=== PATIENT | female | born 1950 | race Caucasian/White ===

== ENCOUNTER → 2017-01-14 | Outpatient (CLI) | payer BC ==
[2017-01-14 10:36] LABS: HEMATOCRIT 41.3 % (37-47); MEAN CELL VOLUME 92.4 fL (80-100); MEAN CORPUSCULAR HEMOGLOBIN 30.6 pg (25-34); MEAN CORPUSCULAR HGB CONC 33.2 g/dl (32-36); MEAN PLATELET VOLUME 10.5 fL (7.4-10.4); PLATELET COUNT 250 K/uL (130-400); RED BLOOD COUNT 4.47 M/uL (4.2-5.4); WHITE BLOOD COUNT 8.13 K/uL (4.8-10.8)
[2017-01-14 10:47] LABS: ALKALINE PHOSPHATASE 95 U/L (45-117); ALT/SGPT 13 U/L (12-78); BLOOD UREA NITROGEN 17 mg/dl (7-18); BUN/CREATININE RATIO 20.9 (10-20); CALCIUM 8.5 mg/dl (8.5-10.1); CARBON DIOXIDE 27 mmol/L (21-32); CHLORIDE 106 mmol/L (98-107); CHOLESTEROL 196 mg/dl (0-200); CHOLESTEROL/HDL RATIO 3.6; CREATININE 0.82 mg/dl (0.60-1.20); GLUCOSE 99 mg/dl (70-99); HDL CHOLESTEROL 55 mg/dl; LDL CHOLESTEROL CALCULATED 129 mg/dl; POTASSIUM 4.3 mmol/L (3.5-5.1); SODIUM 139 mmol/L (136-145); TRIGLYCERIDES 61 mg/dl (0-150); VERY LOW DENSITY LIPOPROT CALC 12 mg/dl
[2017-01-14 10:54] LABS: ALB/GLOB RATIO 0.9 (0.9-2); AST/SGOT 19 U/L (15-37); FERRITIN 16.2 ng/ml (8.0-388.0); THYROID STIMULATING HORMONE 0.624 uIu/ml (0.300-4.500)
[2017-01-14 11:00] LABS: BASO ABS # 0.15 K/uL (0-0.2); BASOPHIL % 1.8 %; COMPLETE YES; EOSINOPHIL % 6.3 %; LYMPH ABS # 2.25 K/uL (1.2-3.4); LYMPHOCYTE % 27.7 %; MYELOCYTE % 0.9 %; NEUTROPHILS % 55.3 %
[2017-01-14 11:41] LABS: ESTIMATED AVERAGE GLUCOSE 103 mg/dl; HA1C FLAG Normal (Normal)
== END | disposition home or self-care (01) ==
LOC: C.LABBC 07:50
PROVIDERS: ATTEND Nurse Practitioner Family
DX: E78.5 Hyperlipidemia, unspecified (principal); R73.03 Prediabetes; E03.9 Hypothyroidism, unspecified; R53.83 Other fatigue; L65.9 Nonscarring hair loss, unspecified; Z13.1 Encounter for screening for diabetes mellitus

== ENCOUNTER → 2017-06-19 | Outpatient (CLI) | payer BC ==
--- NOTE | 2017-06-19 17:17 | MAMMOGRAPHY REPORT ---
BILATERAL DIGITAL SCREENING MAMMOGRAM WITH CAD: 06/19/2017 CLINICAL HISTORY: Routine screening. Patient has no complaints. TECHNIQUE: Current study was also evaluated with a Computer Aided Detection (CAD) system. Bilateral CC and MLO views were obtained. COMPARISON: Comparison is made to exams dated: 06/15/2016 mammogram, 05/26/2015 mammogram, 05/12/2014 pipo mogram, 05/11/2013 mammogram, 04/21/2012 mammogram, and 04/19/2011 mammogram - [facility] er. BREAST COMPOSITION: There are scattered areas of fibroglandular density in both breasts. FINDINGS: There is a 5 mm mass within the right central/12:00 breast middle depth, for which spot com pression tomosynthesis views and possible breast ultrasound are recommended for further evaluation. This may represent a cyst. The remainder of both breasts are stable compared to prior exams, without suspicious masses, calcific ations, or areas of architectural distortion noted. Small mass in the left central breast is stable dating back to at least the 2010 exam. IMPRESSION: ACR BI-RADS CATEGORY 0: INCOMPLETE EVALUATION: NEED ADDITIONAL IMAGING EVALUATION Right breast mass, for which additional imaging evaluation is recommended. The patient will be called to schedule an appointment. Approximately 10% of breast cancers are not detected with mammography. A negative mammographic report should not delay biopsy if a clinically suggestive mass is present. Ce Farias M.D. /:06/19/2017 16:35:03 Telecommunications Facility Examiner: An Meyer, [facility] letter sent: Addl Imaging 0 BI-RADS Code: ACR BI-RADS Category 0: Incomplete Evaluation: Need Additional Imaging Evaluation
== END | disposition home or self-care (01) ==
LOC: C.MAMM 09:44
PROVIDERS: ATTEND Nurse Practitioner Family
DX: Z12.31 Encounter for screening mammogram for malignant neoplasm of breast (principal); N63 Unspecified lump in breast

== ENCOUNTER → 2017-06-28 | Outpatient (CLI) | payer BC ==
--- NOTE | 2017-06-28 12:44 | MAMMOGRAPHY REPORT ---
UNILATERAL RIGHT DIGITAL DIAGNOSTIC MAMMOGRAM TOMOSYNTHESIS AND TARGETED RIGHT ULTRASOUND: 06/28/2017 CLINICAL HISTORY: Callback from screening mammogram for right breast mass. TECHNIQUE: Breast tomosynthesis in addition to standard 2D mammography was performed. Spot compress ion right CC and MLO 2-D and tomosynthesis images were obtained. COMPARISON: Comparison is made to exams dated: 06/19/2017 mammogram, 06/15/2016 mammogram, 05/12/2014 pipo mogram, 05/11/2013 mammogram, and 04/19/2011 mammogram - [facility] [address]. BREAST COMPOSITION: There are scattered areas of fibroglandular density in the right breast. FINDINGS: Spot compression views of the right breast demonstrate an oval circumscribed 6 mm mass in the right central breast middle depth. Targeted ultrasound was performed of the right retroareolar b reast in the region of the mammographic mass. In the right subareolar breast, there is an oval circu mscribed hypoechoic 3 x 4 mm mass. This likely corresponds with the mammographic mass and is probabl y benign and likely represents a cyst versus focal duct ectasia. Other mildly prominent ducts are se en within the right subareolar breast. IMPRESSION: ACR-BI-RADS CATEGORY 3: PROBABLY BENIGN, TARGETED ULTRASOUND ACR-BI-RADS CATEGORY 3: PRO BABLY BENIGN Hypoechoic circumscribed benign-appearing 4 mm mass in the right retroareolar breast on ultrasound, w hich is felt to correspond with the circumscribed mammographic mass. The mass is probably benign and recommend follow-up diagnostic tomosynthesis mammogram and possible ultrasound of the right breast i n 6 months to confirm stability. The patient has been verbally notified of the results. Approximately 10% of breast cancers are not detected with mammography. A negative mammographic report should not delay biopsy if a clinically suggestive mass is present. Ce Farias M.D. ah/:06/28/2017 09:53:46 Skip Miner Blasting: Chitra BROOKS)(M), [facility] [address] letter sent: Follow Up Recommended 3 BI-RADS Code: ACR-BI-RADS Category 3: Probably Benign Ultrasound BI-RADS: ACR-BI-RADS Category 3: Pr obably Benign
--- NOTE | 2017-07-03 15:00 | CODING QUERY NO DIAGNOSIS ---
TREATMENT RENDERED WITHOUT A DIAGNOSIS James GUALLPA, To promote full compliance with coding requirements relating to patient care, physician participation is requested in all cases of tongue and groove machine feeder uncertainty. Please assist us with providing a diagnosis/symptom for the test(s) below: A diagnosis/symptom was not documented on your Order. A valid diagnosis/symptom is required to bill all insurances. Please remember that we are unable to code a diagnosis of rule out, probable, possible, questionable, or suspected. Tests that require a diagnosis: * DIAG RT CALL BACK W/O CAD DIAGNOSIS: * ULTRASOUND BREAST LIMITED DIAGNOSIS: DATE OF SERVICE: 06/28/17 Provider Signature: Date: Thank you Josiah Ragsdale [facility] Information Management Once completed, please kindly fax back to [phone] For questions please call [phone]
== END | disposition home or self-care (01) ==
LOC: C.MAMM 08:19
PROVIDERS: ATTEND Nurse Practitioner Family
DX: N63 Unspecified lump in breast (principal); R92.8 Other abnormal and inconclusive findings on diagnostic imaging of breast

== ENCOUNTER → 2017-12-27 | Outpatient (CLI) | payer OTHER ==
--- NOTE | 2017-12-30 12:43 | MAMMOGRAPHY REPORT ---
UNILATERAL RIGHT DIGITAL DIAGNOSTIC MAMMOGRAM TOMOSYNTHESIS WITH CAD AND TARGETED RIGHT ULTRASOUND: CLINICAL HISTORY: Short interval follow-up right breast mass. TECHNIQUE: Breast tomosynthesis in addition to standard 2D mammography was performed. Current study was also evaluated with a Computer Aided Detection (CAD) system. Right CC and MLO 2D and tomosynthes is images were obtained. COMPARISON: Comparison is made to exams dated: 06/28/2017 mammogram, 06/28/2017 ultrasound, 06/19/2017 mammogram, 06/15/2016 mammogram, 05/26/2015 mammogram, and 05/12/2014 mammogram - [facility]ter. BREAST COMPOSITION: There are scattered areas of fibroglandular density in the right breast. FINDINGS: The previously described oval circumscribed low-density benign-appearing 5 mm mass within t he right central breast middle depth is not significantly changed mammographically compared to the Se ptember 2017 exam. The remainder of the right breast is stable mammographically compared to prior ex ams, without suspicious masses, calcifications, or areas of architectural distortion noted. Targeted ultrasound was performed of the right subareolar breast in the region of the mammographic as ymmetry. Multiple nodular hypoechoic regions are seen within the right subareolar breast on ultrasou nd, which have the appearance of prominent ducts. One round nearly anechoic 3 mm mass is seen during antiradial imaging, which did not clearly persist on radial imaging and likely represents a cyst or duct. No suspicious sonographic abnormality is evident. No clear sonographic correlate for the mamm ographic mass is seen. However, the mammographic mass has benign features mammographically and likel y represent a cyst versus focal duct ectasia. IMPRESSION: ACR BI-RADS CATEGORY 2: BENIGN, TARGETED ULTRASOUND ACR BI-RADS CATEGORY 2: BENIGN The circumscribed 5 mm benign-appearing mass in the right central breast is stable compared to the Se ptember 2017 exam. A clear sonographic correlate is not evident. Given the stability and benign pipo mographic features, the mass is considered benign and likely represents a small cyst versus focal garima t ectasia. The mass can continue to be followed on yearly screening mammography for any changes. Th erefore, return to routine annual mammogram screening schedule, due June 2018. The patient has been verbally notified of the results. Approximately 10% of breast cancers are not detected with mammography. A negative mammographic report should not delay biopsy if a clinically suggestive mass is present. Ce Farias M.D. ah/:12/27/2017 10:31:39 Assistant Floor Covering Printer: Martin BROOKS)(Jose G), [facility] letter sent: Normal 1/2 BI-RADS Code: ACR BI-RADS Category 2: Benign Ultrasound BI-RADS: ACR BI-RADS Category 2: Benign
== END | disposition home or self-care (01) ==
LOC: C.MAMM 09:47
PROVIDERS: ATTEND Nurse Practitioner Family
DX: Z09 Encounter for follow-up examination after completed treatment for conditions other than malignant neoplasm (principal); N63.10 Unspecified lump in the right breast, unspecified quadrant

== ENCOUNTER 2021-04-10 07:06 | Observation (INO) ==
--- NOTE | 2021-04-07 11:03 | Anesthesiology Consultation ---
Date of Service April 07, 2021 Assessment & Plan (1) Encounter for pre-operative examination: Chart Review Chart Review: Acceptable Risk for Surgery (pending preop Covid testing and anesthesia review of unconfirmed EKG DOS ) and Patient seen in Pre Admission Testing -Will need anesthesia to review unconfirmed EKG DOS Per nursing assessment 04/07/2021, pt returned home from [place] (flew) two weeks ago. Wore mask during flight. No known Covid positive contacts or Covid related symptoms. No known Covid infection in the past 90 days. Pt is vaccinated for Covid. Covid test 04/07/21= results pending History Surgery Operation Date: 04/10/21 08:50 Proposed Procedures p Laparoscopic Cholecystectomy - Mamadou Trejo MD, FACS Height/Weight Height: 5 ft 4.5 in Weight: 85.729 kg Allergies Allergy/AdvReac Type Severity Reaction Status Date / Time latex Allergy Mild Rash Verified 04/07/21 10:42 Medications Home Medications Medication Instructions Recorded Confirmed Last Taken cetirizine 10 mg tablet 10 mg PO DAILY PRN 04/07/21 04/07/21 Unknown cholecalciferol (vitamin D3) 125 125 mcg PO QAM 04/07/21 04/07/21 Unknown mcg (5,000 unit) capsule lactobacillus combo no.6 4 billion 1 cell PO QAM 04/07/21 04/07/21 Unknown cell tablet levothyroxine 125 mcg capsule 125 mcg PO 5XWK 04/07/21 04/07/21 Unknown omeprazole 40 mg capsule,delayed 40 mg PO HS 04/07/21 04/07/21 Unknown release sertraline 50 mg tablet 50 mg PO QAM 04/07/21 04/07/21 Unknown tumeric 100 mg-dominick 150 mg-olive 1 cap PO QAM 04/07/21 04/07/21 Unknown 50 mg-oreg 150 mg-caprylate capsule vitamin B complex 1 tab PO QAM 04/07/21 04/07/21 Unknown Past Medical History Medical History Anxiety Gallstones Heartburn Hyperlipidemia "BORDERLINE" Hypothyroidism Prediabetes Past Family History Family History Father Heart disease Cancer Hypertension Mother Diabetes Hypertension Family history of diabetes mellitus Brother Hypertension Grandmother (Paternal) Family history of diabetes mellitus Other No family history of adverse response to anesthesia Past Surgical History Surgical History H/O colonoscopy (2018) History of anesthesia reaction SLOW TO WAKE UP WITH WISDOM TEETH REMOVAL [place] teeth removed Social History Smoking Status: Never smoker Do You Dip or Chew Tobacco: No Hx Alcohol Use: Yes Alcohol type: wine alcohol intake frequency: a few times a week substance use type: does not use Lab Results Anesthesia Preop Results Results Anesthesia Widget: WBC 10.38 K/uL (4.8-10.8) 04/07/21 Hgb 16.0 g/dL (12.0-16.0) 04/07/21 Hct 47.7 % (37-47) H 04/07/21 Plt 257 K/uL (130-400) 04/07/21 Na 138 mmol/L (136-145) 04/07/21 K 4.2 mmol/L (3.5-5.1) 04/07/21 Cl 105 mmol/L (98-107) 04/07/21 CO2 28 mmol/L (21-32) 04/07/21 BUN 15 mg/dl (7-18) 04/07/21 Creat 0.88 mg/dl (0.6-1.2) 04/07/21 Glucose Level 94 mg/dl (70-99) 04/07/21 Testing Electrocardiogram Date: 04/07/21 Findings: + NSR @ (62bpm) Nonspecific ST abnormality. unconfirmed
--- NOTE | 2021-04-10 05:37 | History & Physical Bridge Note ---
Date of Service April 10, 2021 History & Physical Bridge Note I have examined the patient, reviewed the History & Physical and in the interval since the performance of the History & Physical I have noted the following changes of clinical significance: no changes noted
[~2021-04-10 07:06] MED LIST: CLINDAMYCIN 900 MG in DEXTROSE 5% 50 ML IV SCH; LR 15ML/HR IV SCH
[2021-04-10] MEDS ORDERED: MIDAZOLAM HCL 1 MG/ML 2ML VIAL ONE (07:44)
[2021-04-10] MEDS ORDERED: PROPOFOL IV EMULSION 10 MG/ML 20 ML VIAL IV ONE (07:44)
[2021-04-10] MEDS ORDERED: fentaNYL citrate 100 MCG/2 ML VIAL ONE (07:44)
[2021-04-10] MEDS ORDERED: LIDOCAINE 2% 2 ML VIAL/AMP(20MG/ML) INFIL ONE (07:44)
[2021-04-10] MEDS ORDERED: ROCURONIUM BROMIDE 10 MG/ML 5 ML VIAL IV ONE (07:44)
[2021-04-10] MEDS ORDERED: fentaNYL citrate 100 MCG/2 ML VIAL IV PRN (08:14)
[2021-04-10] MEDS ORDERED: ATROPINE SULFATE 0.1 MG/ML 10ML SYR IV PRN (08:14)
[2021-04-10] MEDS ORDERED: ONDANSETRON INJ 2 MG/ML 2 ML VIAL IV PRN ×2 (08:14→10:55)
[2021-04-10] MEDS ORDERED: ePHEDrine sulfate 50 MG/ML AMP IV PRN (08:14)
[2021-04-10] MEDS ORDERED: BUPIVACAINE 0.5 % 5 MG/1 ML MPF 30ML VIAL ONE (08:15)
[2021-04-10] MEDS ORDERED: ePHEDrine sulfate 50 MG/ML SYR ONE (09:02)
[2021-04-10] MEDS ORDERED: NEOSTIGMINE METHYLSULFATE 1 MG/ML 10ML VIAL ONE (09:31)
[2021-04-10] MEDS ORDERED: GLYCOPYRROLATE 0.2 MG/ML VIAL ONE (09:31)
--- NOTE | 2021-04-10 09:47 | Post Operative Brief Note ---
PG Immediate Post Op with CF Date of Surgery April 10, 2021 Pre & Post Diagnosis Operation Date: 04/10/21 08:50 Pre-Op Diagnosis: Cholelithiasis Post-Op Diagnosis: Cholelithiasis, severe chronic cholecystitis I identified the patient and participated in the time-out.: Yes Procedure Operation Date: 04/10/21 08:50 Actual Procedures p Laparoscopic Cholecystectomy(Not Applicable) - Mamadou Trejo MD, FACS Surgeon Mamadou Trejo MD, FACS Grain Shipper nurses Estimated Blood Loss 10 Findings Consistent with Post-Op Diagnosis Specimens Specimen Description: Permanent Specimen: A) Gallbladder Drains Luis Carlos-Rodrigues Drain
[2021-04-10] MEDS ORDERED: ACETAMINOPHEN 1,000 MG/100 ML VIAL IV ONE (09:48)
--- NOTE | 2021-04-10 10:35 | Anesthesiology Progress Note ---
Date of Service April 10, 2021 Anesthesia Post Procedure Vital Signs Vital Signs: Temp Pulse Resp BP Pulse Ox 04/10/21 10:25 61 16 126/68 96 04/10/21 10:15 63 16 127/68 99 04/10/21 10:05 61 16 127/70 99 04/10/21 09:57 97.0 F L 63 18 128/73 100 04/10/21 07:42 98.1 F 63 18 129/76 94 Transfer of Care Handoff Completed per policy Notes Mental Status: alert / awake / arousable and participated in evaluation Patient Amnestic to Procedure: Yes Nausea / Vomiting: adequately controlled Pain: adequately controlled Airway Patency, RR, SpO2: stable & adequate BP & HR: stable & adequate Hydration State: stable & adequate Anesthetic Complications: no major complications apparent and Pt Satisfied with anesthetic care
[2021-04-10] MEDS ORDERED: IBUPROFEN 600 MG TAB PO PRN (10:55)
[2021-04-10] MEDS ORDERED: PROMETHAZINE HCL 25 MG in SODIUM CHLORIDE 0.9% 50 ML IV PRN (10:55)
[2021-04-10] MEDS ORDERED: MoRPHine SULFATE 2 MG/ML CARP IV PRN (10:55)
[2021-04-10] MEDS ORDERED: oxyCODONE HCL IR 5 MG TAB (IMMEDIATE RELEASE) PO PRN (10:55)
[2021-04-10] MEDS ORDERED: SODIUM CHLORIDE 0.9% 1000ML 1,000 ML IV SCH (10:55)
[2021-04-10] MEDS ORDERED: ACETAMINOPHEN 325 MG TAB PO PRN (10:55)
[2021-04-10] MEDS ORDERED: PROMETHAZINE HCL 12.5 MG in SODIUM CHLORIDE 0.9% 50 ML IV PRN (10:55)
--- NOTE | 2021-04-10 11:14 | Operative Report (OR) ---
DATE OF SURGERY: 04/10/2021. NAME OF OPERATION: Obstruct cholecystectomy and lysis of adhesions. PREOPERATIVE DIAGNOSIS: Cholelithiasis. POSTOPERATIVE DIAGNOSES: Cholelithiasis with severe chronic cholecystitis and adhesions. SURGEON: Mamadou Trejo MD. ANESTHESIA: General. DESCRIPTION OF PROCEDURE: The patient was brought in the operating room and placed on the operating table in supine position. Her abdomen was prepped and draped in the usual fashion. An incision was made above her umbilicus, carried dissection down to the fascia, placing a Veress needle producing pn eumoperitoneum. An 11 mm port placed at this level and under visualization, three [address] aced, one cephalad and two laterally. The gallbladder was grasped and retracted. It was chronically thickened. There was a huge stone in the gallbladder. There were adhesions to the gallbladder. Th mine were taken down. Dissection was carried out the johnnie hepatitis showing severe chronic inflammat ion and scar tissue, identifying the cystic duct and cystic artery. The cystic duct appeared to be v maryann large next to the gallbladder. The artery was clipped and transected. The duct was then clipped and then there was severe thickened scar tissue in this area. Eventually, it was transected high up on the gallbladder. At this point, the gallbladder was dissected away from the liver bed in the usu al fashion, placed in an Endobag. A 19 round Luis Carlos-Rodrigues drain placed through the lateral 5 mm port site into the subhepatic space, secured to the skin using 3-0 nylon suture. The gallbladder was shalonda luke in an Endobag. Then, using a 5 mm scope, we removed the Endobag through the umbilical site. I d id have to enlarge the fascial defect because of the size of the stone. The fascia at the umbilicus was closed using a 0 PDS suture. The skin was reapproximated at the umbilicus using 5-0 Prolene sutu re. Other sites using subcuticular 4-0 Monocryl with Dermabond. Transferred to recovery room in sta ble condition. Job ID: [id number]
[2021-04-10] MEDS ORDERED: PANTOprazole 40 MG TAB PO SCH (21:00)
[2021-04-11 06:22] LABS: Basophils # (auto) 0.02 K/uL (0-0.2); Basophils % (auto) 0.2 %; Eosinophils # (auto) 0.12 K/uL (0-0.5); Eosinophils % (auto) 1.2 %; Hematocrit (blood only) 36.6 % (37-47); Hemoglobin 12.2 g/dL (12.0-16.0); Immature Granulocytes # (auto) 0.08 K/uL (0.00-0.02); Immature Granulocytes % (auto) 0.8 %; Lymphocytes # (auto) 2.06 K/uL (1.2-3.4); Lymphocytes % (auto) 20.3 %; Mean Corpuscular Hgb Conc 33.3 g/dL (32-36); Mean Corpuscular Volume 98.9 fL (80-100); Mean Platelet Volume 10.6 fL (7.4-10.4); Monocytes # (auto) 0.78 K/uL (0.11-0.59); Monocytes % (auto) 7.7 %; Neutrophils # (auto) 7.08 K/uL (1.4-6.5); Neutrophils % (auto) 69.8 %; Platelet Count 211 K/uL (130-400); RDW Coefficient of Variation 15.6 % (11.5-14.5); White Blood Count 10.14 K/uL (4.8-10.8)
[2021-04-11] MEDS ORDERED: LEVOTHYROXINE SODIUM 125 MCG TABLET PO SCH (06:30)
[2021-04-11 06:56] LABS: Albumin Level 2.9 gm/dl (3.4-5.0); BUN Creatinine Ratio 16.6 (10-20); Bilirubin Direct 0.1 mg/dl (0-0.2); Calcium 8.1 mg/dl (8.5-10.1); Est GFR (Non-African American) 92.4 ml/min; Potassium 3.8 mmol/L (3.5-5.1)
[2021-04-11 06:58] LABS: Albumin Globulin Ratio 0.9 (0.9-2); Bilirubin,Total 0.4 mg/dl (0.2-1); Globulin 3.1 gm/dl (2.5-4.0); Phosphorus 2.9 mg/dl (2.5-4.9)
[2021-04-11] MEDS ORDERED: SERTRALINE HCL 50 MG TABLET PO SCH (09:00)
--- NOTE | 2021-04-11 11:24 | Discharge Summary (DS) ---
DATE OF ADMISSION: 04/10/2021 DATE OF DISCHARGE: 04/11/2021 PRINCIPAL DIAGNOSIS: Severe chronic cholecystitis with adhesions. PROCEDURE: The patient underwent laparoscopic cholecystectomy with drain placement. HISTORY OF PRESENT ILLNESS: The patient is a 70-year-old female who has been having what appears to be biliary colic with gallbladder full of stones. She was brought in the hospital for elective james cystectomy. She underwent laparoscopic cholecystectomy showing severe chronic cholecystitis with adh esions, somewhat difficult dissection and drain placement. She had one very large gallstone palpable . She has done quite well overnight and is felt stable for discharge home today to be [facility] within 1-2 days. Job ID: [id number]
== END 2021-04-11 12:31 | disposition home or self-care (01) ==
LOC: ASU 07:06 → 3N 07:06